=== PATIENT | female | born 1960 | race Two or more races ===

== ENCOUNTER 2019-09-03 15:04 | Emergency (ER) | payer SELFPAY ==
[~2019-09-03] VITALS: Ht 157.5 cm; Wt 79.4 kg
[~2019-09-03 15:04] MED LIST: ASPI-1169 PO; Metoprolol Succinate PO; SIMV20TA2 PO
--- NOTE | 2019-09-03 15:18 | NUR ---
DR LAURENT AT BEDSIDE
[2019-09-03 15:19] VITALS: BP 134/96
--- NOTE | 2019-09-03 15:19 | NUR ---
CAME IN FOR R KNEE PAIN WHILE TRYING TO TRANSFER TO CHAIR THIS MORNING, TO ER BED 10, HOOKED TO MONITOR, CHANGED TO HOSP GOWN, WARM BLANKET PROVIDED, AWAITING MD BARRETT.
[2019-09-03] MEDS ORDERED: KETOROLAC TROMETHAMINE INJ 60 MG/2 ML VIAL IM ONE (15:30)
--- NOTE | 2019-09-03 15:33 | NUR ---
SUPPORT ANALYST AT BEDSIDE
[2019-09-03] MEDS ORDERED: KETOROLAC TROMETHAMINE INJ 30 MG/ML VIAL ONE (15:34)
--- NOTE | 2019-09-03 17:20 | NUR ---
Patient discharged to home in stable condition. Written and verbal after care instructions given. Patient verbalizes understanding of instruction.
== END 2019-09-03 17:21 | disposition home or self-care (01) ==
LOC: ER 15:15
DX: S83.8X1A Sprain of other specified parts of right knee, initial encounter (principal); G43.909 Migraine, unspecified, not intractable, without status migrainosus; I10 Essential (primary) hypertension; E11.9 Type 2 diabetes mellitus without complications; E78.00 Pure hypercholesterolemia, unspecified; Z90.710 Acquired absence of both cervix and uterus; Z88.0 Allergy status to penicillin; Z79.899 Other long term (current) drug therapy; Z79.82 Long term (current) use of aspirin; W22.8XXA Striking against or struck by other objects, initial encounter; Y93.89 Activity, other specified; Y92.89 Other specified places as the place of occurrence of the external cause; Y99.8 Other external cause status
CPT/HCPCS: 73564; 96372; 99283; J1885

== ENCOUNTER 2024-08-24 20:08 | Emergency (ER) | payer MEDICARE, OTHER ==
[~2024-08-24] VITALS: Ht 165.1 cm; Wt 84.4 kg
[2024-08-24] MEDS ORDERED: DIPH25CA83 PO (21:45)
[2024-08-24] MEDS ORDERED: FAMO-131 PO (21:45)
[2024-08-24] MEDS ORDERED: PRED20TA PO (21:45)
[2024-08-24] MEDS: FAMOTIDINE (20 MG) 20 MG TABLET PO ONE (21:55)
[2024-08-24] MEDS: dexaMETHasone SOD PHOSPHATE 10 MG/ML VIAL IM ONE (21:55)
[2024-08-24] MEDS: diphenhydrAMINE HCL ELIX 25 MG/10 ML UDC PO ONE (21:55)
[2024-08-24 21:58] VITALS: BP 145/80; TEMP 98; O2SAT 96
== END 2024-08-24 21:59 | disposition home or self-care (01) ==
LOC: ER 20:11
DX: T78.49XA Other allergy, initial encounter (principal); M79.89 Other specified soft tissue disorders; I10 Essential (primary) hypertension; E11.9 Type 2 diabetes mellitus without complications; E78.5 Hyperlipidemia, unspecified; Z79.82 Long term (current) use of aspirin; Z88.0 Allergy status to penicillin; Z90.49 Acquired absence of other specified parts of digestive tract; Z90.710 Acquired absence of both cervix and uterus; Z79.899 Other long term (current) drug therapy; Y92.89 Other specified places as the place of occurrence of the external cause
CPT/HCPCS: 99285; 93971; 96372; J1100; Q0163

== ENCOUNTER 2024-11-24 23:32 | Emergency (ER) | payer MEDICARE, OTHER ==
[~2024-11-24] VITALS: Ht 157.5 cm; Wt 81.2 kg
[~2024-11-24 23:32] MED LIST changes: +DIPH25CA83 PO; +FAMO-131 PO; +PRED20TA PO
[2024-11-25] MEDS ORDERED: VALA100026 PO (00:25)
[2024-11-25] MEDS ORDERED: PRED50TA PO (00:25)
[2024-11-25 00:55] VITALS: BP 153/76; TEMP 97.8; O2SAT 98
== END 2024-11-25 00:55 | disposition home or self-care (01) ==
LOC: ER 23:39
DX: G51.0 Bell's palsy (principal); M62.838 Other muscle spasm; R53.1 Weakness; E11.9 Type 2 diabetes mellitus without complications; E78.00 Pure hypercholesterolemia, unspecified; I10 Essential (primary) hypertension; G43.909 Migraine, unspecified, not intractable, without status migrainosus; Z79.52 Long term (current) use of systemic steroids; Z79.624 Long term (current) use of inhibitors of nucleotide synthesis; Z79.82 Long term (current) use of aspirin; Z88.0 Allergy status to penicillin; Z90.49 Acquired absence of other specified parts of digestive tract; Z90.710 Acquired absence of both cervix and uterus; Z86.79 Personal history of other diseases of the circulatory system